=== PATIENT | male | born 1995 | race Hispanic/Latino ===

== ENCOUNTER 2021-07-02 19:35 | Emergency (ER) | payer OTHER ==
[~2021-07-02] VITALS: Ht 182.9 cm; Wt 81.6 kg
[2021-07-02] MEDS ORDERED: AZIT250T9 PO (22:47)
[2021-07-02] MEDS ORDERED: ACET-3194 PO (22:47)
[2021-07-02] MEDS ORDERED: IBUP-2070 PO (22:47)
[2021-07-02] MEDS ORDERED: IBUPROFEN 600 MG TABLET PO ONE (23:00)
[2021-07-02 23:18] VITALS: BP 129/70
== END 2021-07-02 20:11 | disposition home or self-care (01) ==
LOC: EDH 19:35
DX: U07.1 COVID-19 (principal)
CPT/HCPCS: 71045; 87635; 87804 ×2; 99284; C9803